=== PATIENT | female | born 1995 | race Caucasian/White ===

== ENCOUNTER 2017-05-25 14:07 | Emergency (ER) | payer SELFPAY ==
[2017-05-25 14:12] VITALS: BP 101/64; PULSE 70; TEMP 97.9; BMI 25.1
[2017-05-25 15:03] LABS: BASOPHIL 0.4 % (0-2.0); EOSINOPHIL 0.9 % (0-4.5); MCH 29.8 pg (25.7-33.7); MCHC 33.5 g/dl (32.0-36.0); MEAN CELL VOLUME 89.2 fl (80-96); MEAN PLT VOLUME 9.1 fl (7.5-11.1); NEUTROPHILS 63.5 % (42.8-82.8); PLATELET COUNT 256 K/MM3 (134-434)
[2017-05-25 15:04] LABS: URINE APPEARANCE SLCLOUDY; URINE BILIRUBIN NEGATIVE (NEGATIVE); URINE BLOOD NEGATIVE (NEGATIVE); URINE COLOR YELLOW; URINE GLUCOSE (UA) NEGATIVE (NEGATIVE); URINE KETONE NEGATIVE (NEGATIVE); URINE LEUK ESTERASE NEGATIVE (NEGATIVE); URINE NITRITE NEGATIVE (NEGATIVE); URINE PROTEIN NEGATIVE (NEGATIVE); URINE UROBILINOGEN NEGATIVE mg/dL (0.2-1.0)
--- NOTE | 2017-05-25 15:13 | PDOC ---
History of Present Illness - General Chief Complaint: Vaginal Bleeding Stated Complaint: 8 WEEK PREG, VAG. BLEEDING,PAIN Time Seen by Provider: 05/25/17 14:33 History Source: Patient, Friend (Was translating) Exam Limitations: Language Barrier - History of Present Illness Initial Comments: 05/25/17 15:11 The patient is a 21F 8 weeks by LMP who presents to the ED with vaginal bleeding and abdominal pain. 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 Today, the pain worsened and is accompanied by vaginal bleeding. There has been no discharge. This is the patient's 3rd , she has had 1 miscarriage. Past History - Past Medical History Allergies/Adverse Reactions: Allergies Allergy/AdvReac Type Severity Reaction Status Date / Time No Known Allergies Allergy Verified 05/25/17 14:12 Home Medications: Ambulatory Orders Amoxicillin/Potassium Clav [Augmentin 875-125 Tablet] 1 each PO BID 05/25/17 Other medical history: denies - Reproductive History Is Patient Now?: Yes (#): 3 Para: 1 Cervical CA: No Dysfunctional Uterine Bleeding: No Ectopic : No Endometrial CA: No Polycystic Ovaries: No Therapeutic (s) & number: Yes Tubal Ligation: No - Psycho/Social/Smoking Cessation Hx Suicidal Ideation: No Smoking History: Former smoker Have you smoked in the past 12 months: No If you are a former smoker, when did you quit?: 2017 Information on smoking cessation initiated: No 'Breaking Loose' booklet given: 05/25/17 Hx Alcohol Use: No Drug/Substance Use Hx: No Substance Use Type: None Review of Systems - Review of Systems Able to Perform ROS?: Yes (Limited) Is the patient limited Anguillan proficient: Yes Constitutional: Yes: Chills. No: Fever ABD/GI: Yes: Other (Abd pain). No: Nausea, Vomiting : No: Dysuria, Discharge *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 - Vital Signs Last Vital Signs Temp Pulse Resp BP Pulse Ox 97.9 F 70 18 101/64 100 05/25/17 14:10 05/25/17 14:10 05/25/17 14:10 05/25/17 14:10 05/25/17 14:10 - 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 General Appearance: Yes: Nourished, Appropriately Dressed. No: Apparent Distress HEENT: positive: Normal Voice, Hearing Grossly Normal Respiratory/Chest: positive: Lungs Clear, Normal Breath Sounds. negative: Chest Tender, Respiratory Distress Cardiovascular: positive: Regular Rhythm, Regular Rate, S1, S2 Female Pelvic Exam: positive: normal external exam, cervical os closed, other ( Mucous discharge in vaginal canal) Gastrointestinal/Abdominal: positive: Flat, Soft. negative: Tender, Distended, Guarding, Rebound Extremity: negative: Coldness, Cyanosis, Swelling Integumentary: positive: Dry, Warm. negative: Cold, Clammy Neurologic: positive: Fully Oriented, Alert, Normal Mood/Affect, Motor Strength 02/24 ED Treatment Course - LABORATORY CBC & Chemistry Diagram: 05/25/17 14:45 05/25/17 14:45 - ADDITIONAL ORDERS Additional order review: Laboratory Results 05/25/17 14:45 Urine Color Yellow Urine Appearance Slcloudy Urine pH 5.0 Urine Protein Negative Urine Glucose (UA) Negative Urine Ketones Negative Urine Blood Negative Urine Nitrite Negative Urine Bilirubin Negative Urine Urobilinogen Negative Ur Leukocyte Esterase Negative 05/25/17 14:45 RBC 4.19 MCV 89.2 MCHC 33.5 RDW 13.0 MPV 9.1 Neutrophils % 63.5 Lymphocytes % 26.6 Monocytes % 8.6 Eosinophils % 0.9 Basophils % 0.4 Medical Decision Making - Medical Decision Making 05/25/17 15:27 The patient is a 21F 8 weeks by LMP who presents with vaginal bleeding and abdominal pain. Beside US by Dr. Chacon and I, with Dr. López's supervision, visualized an IUP with a HR of 138. I have ordered basic labs and UA as she was recently diagnosed with UTI. 05/25/17 15:45 I have reassured the patient and instructed her to follow up with an OB within one week. Patient agrees and is ready for discharge. 05/25/17 16:56 Patient left without signing papers. I called the patient and used the chronic specialist phone ([phone]) to communicate the discharge instructions. I informed her to return if the abdominal pain worsened or if the bleeding continued/worsened. I also informed her to follow up with her OB and she agreed over the phone. *DC/Admit/Observation/Transfer Diagnosis at time of Disposition: Abdominal pain affecting - Discharge Dispostion Disposition: HOME Condition at time of disposition: Improved Admit: No - Patient Instructions Printed Discharge Instructions: Vaginal Bleeding During Additional Instructions: Please return to the ER if symptoms persist, worsen, or if new symptoms arise. Please call your OB and make an appointment within 1 week for follow up. Por favor regrese a la robina de emergencias si los sntomas persisten, empeoran o si surgen nuevos sntomas. Por favor llame a shafer obstetra y nereida bridgett arnoldo dentro de bridgett semana para el seguimiento. Print Language: CROATIAN - Attestations Physician Attestion: 05/25/17 15:49 I, Dr. Anuj Newton, attest that this document has been prepared under my direction and personally reviewed by me in its entirety. I further attest, that it accurately reflects all work, treatment, procedures and medical decision -making performed by me.
[2017-05-25 15:29] LABS: ALBUMIN 3.8 g/dl (3.4-5.0); ANION GAP 8 (8-16); BILIRUBIN,TOTAL 0.5 mg/dL (0.2-1.0); CALCIUM 9.1 mg/dL (8.5-10.1); CO2 27 mmol/L (21-32); CREATININE 0.5 mg/dL (0.55-1.02); GLUCOSE,RANDOM 71 mg/dL (74-106); SGOT/AST 13 U/L (15-37); SGPT/ALT 21 U/L (12-78); TOT PROT 7.1 g/dl (6.4-8.2)
--- NOTE | 2017-05-25 15:40 | PDOC ---
Attending Attestation - Resident Resident Name: Anuj Newton - ED Attending Attestation I have performed the following: I have examined & evaluated the patient, The case was reviewed & discussed with the resident, I agree w/resident's findings & plan, Exceptions are as noted - HPI HPI: 05/25/17 16:11 21 F @ 8 weeks gestation presenting with 1 episode of blood streaked urine. No abdominal pain, no dysuria. No F/C. No other vaginal discharge. - Physicial Exam PE: 05/25/17 16:13 GENERAL: Awake, alert, and fully oriented, in no acute distress HEAD: No signs of trauma EYES: PERRLA, EOMI, sclera anicteric, conjunctiva clear ENT: Auricles normal inspection, hearing grossly normal, nares patent, oropharynx clear without exudates. Moist mucosa NECK: Normal ROM, supple, no lymphadenopathy, JVD, or masses LUNGS: Breath sounds equal, clear to auscultation bilaterally. No wheezes, and no crackles HEART: Regular rate and rhythm, normal S1 and S2, no murmurs, rubs or gallops ABDOMEN: Soft, nontender, normoactive bowel sounds. No guarding, no rebound. Gravid uterus. EXTREMITIES: Normal range of motion, no edema. No clubbing or cyanosis. No cords, erythema, or tenderness NEUROLOGICAL: Cranial nerves II through XII grossly intact. Normal speech, normal gait : closed os with physiologic discharge, no blood, no CMT SKIN: Warm, Dry, normal turgor, no rashes or lesions noted. - Medical Decision Making 05/25/17 16:13 21 F @ 8 weeks gestation presenting with 1 episode of blood streaked urine. IUP confirmed on bedside US with normal FHR. Pelvic exam reveals closed cervical os with no blood in vault. Unlikely to be spontaneous , though still a possibility. UA clean. - reassurance - f/u OB within 1 week
[2017-05-25 15:47] LABS: ALK PHOS 51 U/L (45-117)
== END 2017-05-25 16:29 | disposition home or self-care (01) ==
LOC: JER 14:07
DX: O26.91 Pregnancy related conditions, unspecified, first trimester (principal); Z3A.08 8 weeks gestation of pregnancy; R10.9 Unspecified abdominal pain; F17.211 Nicotine dependence, cigarettes, in remission
CPT/HCPCS: 36415; 80053; 81003; 84702; 85025; 86850; 86900; 86901; 87086; 99282-25

== ENCOUNTER 2018-01-01 02:50 | Inpatient (IN) | payer OTHER ==
[2018-01-01] MEDS ORDERED: ELECTROLYTE-148 SOLN 500 ML IV ONE (03:00)
[2018-01-01] MEDS ORDERED: CITRIC ACID/SODIUM CITRATE 30 ML UNIT-DOSE CUP PO ONE (03:00)
[2018-01-01] MEDS: ELECTROLYTE-148 SOLN 1,000 ML IV SCH ×2 (03:30→15:28)
[2018-01-01 03:45] VITALS: BMI 31.2
[2018-01-01] MEDS ORDERED: OXYTOCIN 20 UNITS in 0.9% NS 20 UNIT/1,000 ML INFUS.BAG IV ONE ×2 (04:10→06:36)
[2018-01-01] MEDS ORDERED: ceFAZolin SODIUM 1 GM VIAL ONE (04:12)
[2018-01-01] MEDS ORDERED: morphine SULFATE/Preservative Free 0.5 MG/ML (1cc Syringe) ONE (04:13)
--- NOTE | 2018-01-01 04:39 | HP ---
Past Medical History - Primary Care Physician PCP:: Kirk Taylor - Admission Chief Complaint: 39 weeks, previous c/s , GDM. labor History of Present Illness: 22 yo f , edc by sono 01/08/18. in labor , cx 3 cm 80 vx -3 mi, fhr cat 1 , contraction q 1 min., rba discussed ,, care at [facility] , hx of GDM, on Glyburide 2.5 mg daily History Source: Patient Limitations to Obtaining History: Language Barrier - Past Medical History ...: 3 ...Para: 1 ...Term: 1 ...Spon : 1 ...LMP: 04/03/17 ... Weeks Gestation by Dates: 39.1 ...EDC by Dates: 01/08/18 ...EDC by Sono: 01/08/18 - Past Surgical History Past Surgical History: Yes: Hx Myomectomy: No Hx Transabdominal Cerclage: No - Smoking History Smoking history: Never smoked Have you smoked in the past 12 months: No If you are a former smoker, when did you quit?: 2017 - Alcohol/Substance Use Hx Alcohol Use: No - Social History History of Recent Travel: No Home Medications - Allergies Allergies/Adverse Reactions: Allergies Allergy/AdvReac Type Severity Reaction Status Date / Time No Known Allergies Allergy Verified 12/30/17 13:14 - Home Medications Home Medications: Ambulatory Orders Ferrous Sulfate [Feosol] 325 mg PO DAILY 12/20/17 Glyburide/Metformin HCl [Glyburide-Metformin 2.5-500 mg] 2.5 mg PO BID 12/20/17 Vit/Iron Fum/Folic AC [ Tablet] 1 each PO DAILY 12/20/17 Review of Systems - Review of Systems Constitutional: reports: No Symptoms Eyes: reports: No Symptoms HENT: reports: No Symptoms Neck: reports: No Symptoms Cardiovascular: reports: No Symptoms Respiratory: reports: No Symptoms Gastrointestinal: reports: No Symptoms Genitourinary: reports: No Symptoms Breasts: reports: No Symptoms Reported Musculoskeletal: reports: No Symptoms Integumentary: reports: No Symptoms Neurological: reports: No Symptoms Endocrine: reports: No Symptoms Hematology/Lymphatic: reports: No Symptoms Psychiatric: reports: No Symptoms 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 - Maternity Vital Signs: Vital Signs Temperature 97.9 F 01/01/18 03:46 Pulse Rate 59 L 01/01/18 03:46 Respiratory Rate 19 01/01/18 03:46 Blood Pressure 114/85 01/01/18 03:46 O2 Sat by Pulse Oximetry (%) Constitutional: Yes: Well Nourished, No Distress, Calm Eyes: Yes: WNL, Conjunctiva Clear, EOM Intact HENT: Yes: WNL, Atraumatic, Normocephalic Neck: Yes: WNL, Supple, Trachea Midline Cardiovascular: Yes: WNL, Regular Rate and Rhythm Breast(s): Yes: WNL - Abdominal Exam/OB Fundal Height: 40 Number of Fetuses: Single Presentation: Vertex Regularity: Regular Intensity: Strong Monitor Mode: External Heart Rate Location: [facility] Category: I Accelerations: Uniform Decelerations: None - Vaginal Exam/OB Vaginal Bleediing: Bloody Show Amniotic Membrane Status: Intact Presentation: Vertex/Position Station: -3 - 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 Musculoskeletal: Yes: WNL Edema: Yes Edema: LLE: Trace, RLE: Trace Deep Tendon Reflex Grade: Normal +2 Hemorrhage Risk Assessment - Risk Factors Medium Risk Factors: Yes: Prior , uterine surgery,or multiple laparotomies Risk Score: 1 Risk Level: Medium Risk Problem List - Problems (1) with 39 completed weeks gestation Code(s): Z3A.39 - 39 WEEKS GESTATION OF (2) Labor established Code(s): EMB4975 - (3) Gestational diabetes Code(s): O24.419 - GESTATIONAL DIABETES MELLITUS IN , UNSP CONTROL Qualifiers: Gestational diabetes mellitus control: oral hypoglycemic-controlled (4) Obesity Code(s): E66.9 - OBESITY, UNSPECIFIED Qualifiers: Obesity type: due to excess calories (5) Previous section complicating Code(s): O34.219 - MATERNAL CARE FOR UNSP TYPE SCAR FROM PREVIOUS DEL Assessment/Plan plan requesting repeat c/s, rba discussed
[2018-01-01] MEDS ORDERED: ePHEDrine SULFATE 50 MG/1 ML AMPULE ONE (04:53)
[2018-01-01] MEDS ORDERED: WITCH HAZEL 50% (TUCKS) 40 PAD/JAR PAD TP PRN (05:28)
[2018-01-01] MEDS ORDERED: METHYLERGONOVINE MALEATE 0.2 MG/1 ML AMP IM PRN (05:28)
[2018-01-01] MEDS ORDERED: BENZOCAINE 28 GM HEMORRHOIDAL OINTMENT PR PRN (05:28)
[2018-01-01] MEDS ORDERED: BENZOCAINE 20% 57 GM BOTTLE TP PRN (05:28)
[2018-01-01] MEDS ORDERED: oxyCODONE HCL 5 MG TABLET PO PRN ×2 (05:28)
[2018-01-01] MEDS ORDERED: diphenhydrAMINE HCL 25 MG CAPSULE (FP) PO PRN (05:28)
[2018-01-01] MEDS ORDERED: OXYTOCIN 20 UNITS in 0.9% NS 20 UNIT/1,000 ML INFUS.BAG IV SCH (05:30)
[2018-01-01] MEDS ORDERED: DEXTROSE 5%-LACTATED RINGERS 1,000 ML IV SCH (05:30)
[2018-01-01] MEDS ORDERED: morphine SULFATE/Preservative Free 0.5 MG/ML (1cc Syringe) IT ONE (05:41)
[2018-01-01] MEDS ORDERED: ONDANSETRON 4 MG/2 ML VIAL IVPUSH PRN (05:41)
[2018-01-01] MEDS: IBUPROFEN 800 MG/8 ML IJ IVPB PRN ×2 (08:14→20:16)
--- NOTE | 2018-01-01 09:03 | PN ---
Progress Note (short form) - Note Progress Note: Anesthesia POD#1 S/P under spinal and Duramorph VSS,no N/V,mod itch,mod pain,can move lower extremities. A/P No complications to anesthesia seen. Taylor Buenrostro MD.
[2018-01-01] MEDS: CEFAZOLIN 1 GM/D5W 1 GM/50 ML BAG IVPB SCH ×2 (09:58→17:36)
[2018-01-02] MEDS ORDERED: BISACODYL 10 MG SUPP.RECT PR PRN (05:28)
[2018-01-02] MEDS: IBUPROFEN 800 MG/8 ML IJ IVPB PRN (06:28)
--- NOTE | 2018-01-02 07:42 | PN ---
Post Progress Note Post Day: 1 Type of Delivery: Repeat C/S Vital Signs: Vital Signs Temperature 98.2 F 01/02/18 06:00 Pulse Rate 82 01/02/18 06:00 Respiratory Rate 20 01/02/18 06:00 Blood Pressure 121/78 01/02/18 06:00 O2 Sat by Pulse Oximetry (%) 99 01/01/18 06:43 Breast Exam: Yes: Soft Uterus: Yes: Fundus Firm Incision: Yes: Dressing dry and intact Abdomen/GI: Yes: Abdomen soft Lochia: Yes: Rubra Lochia, amount: Small Extremities: Yes: Calves non-tender Perineum: Yes: Intact Activity: Ambulating Assessment/Plan as above oob cbc today oob pain control
[2018-01-02 08:34] LABS: BASO % 0.4 % (0-2.0); EOS % 0.7 % (0-4.5); HEMATOCRIT 32.3 % (32.4-45.2); LYMPH % 13.4 % (8-40); MCH 29.6 pg (25.7-33.7); MEAN CELL VOLUME 87.2 fl (80-96); MEAN PLT VOLUME 9.4 fl (7.5-11.1); NEUT % 78.5 % (42.8-82.8); PLATELET COUNT 219 K/MM3 (134-434); RDW 15.7 % (11.6-15.6); WHITE BLOOD COUNT 11.5 K/mm3 (4.0-10.0)
[2018-01-02] MEDS: ENOXAPARIN NA (PORCINE) 40 MG/0.4 ML DISP.SYRIN SQ SCH (09:37)
[2018-01-02] MEDS: ACETAMINOPHEN 325 MG TABLET (FP) PO PRN ×2 (13:47→22:54)
[2018-01-02] MEDS: IBUPROFEN 600 MG TABLET (FP) PO PRN ×2 (13:48→22:55)
--- NOTE | 2018-01-02 15:21 | OP ---
DATE OF OPERATION: 01/01/2018 PREOPERATIVE DIAGNOSES: , 39 weeks; previous section; gestational diabetes; labor; request of repeat section. POSTOPERATIVE DIAGNOSES: , 39 weeks; previous section; gestational diabetes; labor; request of repeat section. PROCEDURE: Repeat low-segment transverse section. SURGEON: Kirk Taylor MD FORENSIC MANAGER: ANNETTE Austin ANESTHESIA: Spinal. ANESTHESIOLOGIST: Dr. Villagomez ESTIMATED BLOOD LOSS: 500 mL DESCRIPTION OF OPERATION: Patient was taken to the operating room. Under adequate spinal anesthesia, abdomen and perineum were prepped and draped. Pfannenstiel abdominal skin incision was made over the previous incision. Abdominal wall was cut layer by layer until peritoneum was exposed and incised. Upon entering the abdominal cavity, lower uterine segment was identified and uterovesical fold of peritoneum established. Bladder was pushed down. Then, with the lower blade of the Fitzhugh retractor in the pelvis, a low transverse uterine incision was made. Incision extended laterally with bandage scissors. Amniotic sac was entered, clear fluid. Head delivered. Nasopharynx was suctioned, and live baby was delivered without any difficulty. Placenta was delivered manually. Uterine cavity was cleaned of all remaining tissue. Uterine incision was closed in 2 layers, first layer with 0 Biosyn continuous suture, the second layer with 0 Biosyn imbricating the first layer. Bladder flap was closed with 0 Biosyn continuous suture. Both tubes and ovaries were checked and normal. No active bleeding was seen. All the lap pads, sponge, and instrument counts were correct. Then, peritoneum was closed with 0 Biosyn continuous suture. Muscles were brought together with interrupted suture of 0 Biosyn. Fascia was closed with 0 Biosyn continuous suture, subcutaneous fat with interrupted suture of 0 Biosyn, and the skin was closed with monty. Patient tolerated the procedure well, left the OR in good condition. Alexy [id number]
[2018-01-02] MEDS: SIMETHICONE 80 MG TAB.CHEW (FP) PO PRN (22:56)
[2018-01-03] MEDS: SIMETHICONE 80 MG TAB.CHEW (FP) PO PRN ×3 (06:34→20:26)
[2018-01-03] MEDS: ACETAMINOPHEN 325 MG TABLET (FP) PO PRN ×3 (06:34→20:26)
[2018-01-03] MEDS: IBUPROFEN 600 MG TABLET (FP) PO PRN ×3 (06:34→20:26)
[2018-01-03] MEDS: ENOXAPARIN NA (PORCINE) 40 MG/0.4 ML DISP.SYRIN SQ SCH (10:14)
--- NOTE | 2018-01-03 11:26 | PN ---
Post Progress Note - Subjective Subjective: c/o pain 6/10 at incision site Post Day: 2 Type of Delivery: Repeat C/S Vital Signs: Vital Signs Temperature 98.6 F 01/03/18 09:24 Pulse Rate 73 01/03/18 09:24 Respiratory Rate 20 01/03/18 09:24 Blood Pressure 120/82 01/03/18 09:24 O2 Sat by Pulse Oximetry (%) 99 01/01/18 06:43 Breast Exam: Yes: Soft. No: Engorged Uterus: Yes: Fundus Firm, Fundus below umbilicus, Non-tender Incision: Yes: Isaak intact. No: Redness, Oozing Abdomen/GI: Yes: Abdomen soft, Passing flatus (bm done ), Tolerating PO (diet ) . No: Abdominal Distention, Tender Lochia: Yes: Rubra Lochia, amount: Moderate Extremities: Yes: Calves non-tender Perineum: Yes: Intact Activity: Ambulating - Labs Labs: CBC WBC 11.5 K/mm3 (4.0-10.0) H D 01/02/18 08:00 RBC 3.70 M/mm3 (3.60-5.2) 01/02/18 08:00 Hgb 11.0 GM/dL (10.7-15.3) D 01/02/18 08:00 Hct 32.3 % (32.4-45.2) L 01/02/18 08:00 MCV 87.2 fl (80-96) 01/02/18 08:00 MCH 29.6 pg (25.7-33.7) 01/02/18 08:00 MCHC 34.0 g/dl (32.0-36.0) 01/02/18 08:00 RDW 15.7 % (11.6-15.6) H 01/02/18 08:00 Plt Count 219 K/MM3 (134-434) 01/02/18 08:00 MPV 9.4 fl (7.5-11.1) 01/02/18 08:00 Neutrophils % 78.5 % (42.8-82.8) D 01/02/18 08:00 Lymphocytes % 13.4 % (8-40) D 01/02/18 08:00 Monocytes % 7.0 % (3.8-10.2) 01/02/18 08:00 Eosinophils % 0.7 % (0-4.5) 01/02/18 08:00 Basophils % 0.4 % (0-2.0) 01/02/18 08:00 Assessment/Plan post op c/s day #[address] po care
--- NOTE | 2018-01-03 14:37 | PATH ---
Surgical Pathology Report Patient Name: JOSE LYNN Med. Rec. 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 Specimen(s) Received PLACENTA Clinical History , 39.1 weeks' gestation comments the section for breech presentation 2008 Final Diagnosis PLACENTA, SECTION: 631 g THIRD TRIMESTER PLACENTA WITH TRIVASCULAR UMBILICAL CORD AND UNREMARKABLE PLACENTAL MEMBRANES. Electronically Signed Erica Fair M.D. Gross Description The specimen is received fresh labeled placenta and is a 631 gram, 21.0 x 16.5 x 2.4 cm. placenta with attached membranes and umbilical cord. The attached membranes are singh, translucent with focal opacities and insert marginally. The umbilical cord measures 56 cm. in length and averages 1.2 cm. in diameter. The cord inserts centrally. No true knots or strictures are identified. Cut surface of the umbilical cord reveals 3 vessels. The surface is rodriguez-blue with minimal fibrin deposition and appropriate caliber vessels. The maternal surface is red-brown with focal defects. Sectioning reveals red-brown, spongy parenchyma. No lesions are identified. Data Developer sections are submitted in three cassettes as follows: 1- membrane rolls and umbilical cord; 2-3- full thickness sections of placenta. 01/02/2018 [facility]01/02/2018
[2018-01-03] MEDS ORDERED: SENNOSIDES/DOCUSATE COMBO (SENNA PLUS) TABLET (UD) PO PRN (22:00)
[2018-01-04] MEDS: ACETAMINOPHEN 325 MG TABLET (FP) PO PRN (06:33)
[2018-01-04] MEDS: SIMETHICONE 80 MG TAB.CHEW (FP) PO PRN (06:33)
[2018-01-04] MEDS: IBUPROFEN 600 MG TABLET (FP) PO PRN (06:33)
[2018-01-04 07:57] LABS: BASO % 0.4 % (0-2.0); EOS % 2.4 % (0-4.5); HEMATOCRIT 29.3 % (32.4-45.2); HEMOGLOBIN 9.9 GM/dL (10.7-15.3); MCH 29.9 pg (25.7-33.7); MCHC 33.8 g/dl (32.0-36.0); MEAN CELL VOLUME 88.4 fl (80-96); MEAN PLT VOLUME 9.4 fl (7.5-11.1); MONO % 6.8 % (3.8-10.2); NEUT % 71.4 % (42.8-82.8); PLATELET COUNT 233 K/MM3 (134-434); RBC 3.31 M/mm3 (3.60-5.2); RDW 16.4 % (11.6-15.6); WHITE BLOOD COUNT 10.3 K/mm3 (4.0-10.0)
[2018-01-04 08:43] VITALS: BP 97/68; PULSE 92; TEMP 98.4
[2018-01-04] MEDS: ENOXAPARIN NA (PORCINE) 40 MG/0.4 ML DISP.SYRIN SQ SCH (09:08)
--- NOTE | 2018-01-04 09:23 | DS ---
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-SHAPER MACHINE HAND Vital Signs: Vital Signs Temperature 98.4 F 01/04/18 08:41 Pulse Rate 92 H 01/04/18 08:41 Respiratory Rate 20 01/04/18 08:41 Blood Pressure 97/68 01/04/18 08:41 O2 Sat by Pulse Oximetry (%) 99 01/01/18 06:43 Constitutional: Yes: Well Nourished Eyes: Yes: Conjunctiva Clear HENT: Yes: Atraumatic Neck: Yes: Supple Cardiovascular: Yes: Regular Rate and Rhythm Respiratory: Yes: Regular Gastrointestinal: Yes: Normal Bowel Sounds Pelvis: Yes: WNL External Genitalia: Yes: Normal Vaginal Exam: Yes: Normal Cervix: Yes: Normal Uterus: Yes: Firm Wound/Incision: Yes: Well Approximated, [place] Intact Neurological: Yes: Alert, Oriented ...Motor Strength: WNL Psychiatric: Yes: Alert, Oriented Labs: CBC, BMP 01/04/18 07:40 Delivery - Delivery Type of Anesthesia: Spinal Episiotomy/Laceration: None EBL (cc): 300 Delivery, Single - Stages of Labor Date 1st Stage Initiatied: 01/01/18 Time 1st Stage Initiated: 02:00 Date of Delivery: 01/01/18 Time of Delivery: 05:02 Time Placenta Delivered: 05:03 - Condition of Infant Production Illustrator/Industrial Engineering Technologist Present: Yes Name: Agata Almeida Gender: Male Weight: 9 lb 3 oz Position: Left, OT Total Hours ROM (Hrs/Mins): 3mins. - 1 Minute Total Score: 9 5 Minutes Total Score: 9 - Feeding Plan Initial Plan: Elected not to breastfeed exclusively throughout hospitalization Discharge Summary Reason For Visit: REPEAT C SECTION. Current Active Problems Gestational diabetes (Acute) Labor established (Acute) Obesity (Acute) with 39 completed weeks gestation (Acute) Previous section complicating (Acute) Status post repeat low transverse section (Acute) Procedures: Principal: Repeat Low Transverse Hospital Course: Routine Post op care Condition: Good - Instructions Diet, Activity, Other Instructions: Regular diet No driving, no lifting x 4 weeks F/U in clinic in 1 week Disposition: HOME - Home Medications Comprehensive Discharge Medication List: Ambulatory Orders Ferrous Sulfate [Feosol] 325 mg PO DAILY 12/20/17 Glyburide/Metformin HCl [Glyburide-Metformin 2.5-500 mg] 2.5 mg PO BID 12/20/17 Vit/Iron Fum/Folic AC [ Tablet] 1 each PO DAILY 12/20/17
== END 2018-01-04 12:00 | disposition home or self-care (01) | DRG 540 ==
LOC: JLDR 02:50 → J3W 08:00
PROVIDERS: ADMIT Obstetrics & Gynecology; ATTEND Obstetrics & Gynecology
PROC: 10D00Z1 Extraction of Products of Conception, Low, Open Approach (ICD-10-PCS; principal; 2018-01-01)
DX: O34.211 Maternal care for low transverse scar from previous cesarean delivery (principal); O24.425 Gestational diabetes mellitus in childbirth, controlled by oral hypoglycemic drugs; O99.214 Obesity complicating childbirth; E66.9 Obesity, unspecified; Z68.31 Body mass index [BMI] 31.0-31.9, adult; Z3A.39 39 weeks gestation of pregnancy; Z37.0 Single live birth
CPT/HCPCS: 36415; 82962; 85025; 88307-TC

== ENCOUNTER 2021-11-19 11:32 | Emergency (ER) | payer OTHER ==
[2021-11-19 11:55] VITALS: BP 120/69; PULSE 61; TEMP 97.1; BMI 30.2
[2021-11-19 14:43] LABS: HCG,QUALITATIVE URINE Positive; PH,URINE 5.5 (5.0-8.0); URINE APPEARANCE CLEAR; URINE BILIRUBIN NEGATIVE (NEGATIVE); URINE COLOR YELLOW; URINE GLUCOSE (UA) NEGATIVE (NEGATIVE); URINE KETONE 1+ (NEGATIVE); URINE LEUK ESTERASE NEGATIVE (NEGATIVE); URINE NITRITE NEGATIVE (NEGATIVE); URINE PROTEIN NEGATIVE (NEGATIVE); URINE UROBILINOGEN 0.2 mg/dL (0.2-1.0)
[2021-11-19 15:10] LABS: BASO % 0.2 % (0-2.0); EOS % 0.7 % (0-4.5); HEMATOCRIT 40.3 % (32.4-45.2); HEMOGLOBIN 13.1 GM/dL (10.7-15.3); LYMPH % 25.4 % (8-40); MCH 28.8 pg (25.7-33.7); MCHC 32.6 g/dl (32.0-36.0); MEAN CELL VOLUME 88.5 fl (80-96); MEAN PLT VOLUME 9.1 fl (7.5-11.1); MONO % 5.1 % (3.8-10.2); NEUT % 68.6 % (42.8-82.8); PLATELET COUNT 328 10^3/uL (134-434); RBC 4.55 M/mm3 (3.60-5.2); RDW 13.9 % (11.6-15.6); WHITE BLOOD COUNT 9.2 K/mm3 (4.0-10.0)
[2021-11-19 15:30] LABS: ALBUMIN 4.1 g/dl (3.4-5.0)
[2021-11-19 15:33] LABS: CREATININE 0.6 mg/dL (0.55-1.3)
[2021-11-19 15:35] LABS: BILIRUBIN,TOTAL 0.4 mg/dL (0.2-1)
== END 2021-11-19 17:20 | disposition home or self-care (01) ==
LOC: JER 11:32
DX: O26.851 Spotting complicating pregnancy, first trimester (principal); Z3A.08 8 weeks gestation of pregnancy
CPT/HCPCS: 36415; 76817-TC; 80053; 81003; 84702; 84703; 85025; 86850; 86900; 86901; 87086; 87186; 99284-25

== ENCOUNTER 2021-12-23 11:19 | Emergency (ER) | payer OTHER ==
[2021-12-23 11:35] VITALS: BP 116/73; PULSE 89; TEMP 98.4; BMI 29.0
[2021-12-23] MEDS ORDERED: SODIUM CHLORIDE 0.9% 500 ML INFUS.BAG IV ONE (11:51)
[2021-12-23] MEDS ORDERED: ONDANSETRON 4 MG/2 ML VIAL IVPUSH ONE (11:51)
== END 2021-12-23 13:15 | disposition home or self-care (01) ==
LOC: JERFT 11:19
PROC: 3E033GC Introduction of Other Therapeutic Substance into Peripheral Vein, Percutaneous Approach (ICD-10-PCS; principal; 2021-12-23)
PROC: 3E033GC Introduction of Other Therapeutic Substance into Peripheral Vein, Percutaneous Approach (ICD-10-PCS; 2021-12-23)
DX: O26.891 Other specified pregnancy related conditions, first trimester (principal); R21 Rash and other nonspecific skin eruption; T78.40XA Allergy, unspecified, initial encounter; Z3A.13 13 weeks gestation of pregnancy
CPT/HCPCS: 99284-25

== ENCOUNTER 2022-06-15 04:20 | Inpatient (IN) | payer OTHER ==
[2022-06-15] MEDS ORDERED: ELECTROLYTE-148 SOLN 500 ML IV ONE (04:30)
[2022-06-15] MEDS ORDERED: CITRIC ACID/SODIUM CITRATE 30 ML UNIT-DOSE CUP PO ONE (04:45)
[2022-06-15 05:36] LABS: BASO % 0.4 % (0-2.0); EOS % 1.1 % (0-4.5); HEMOGLOBIN 12.3 GM/dL (10.7-15.3); LYMPH % 28.2 % (8-40); MCH 28.6 pg (25.7-33.7); MCHC 33.2 g/dl (32.0-36.0); MEAN PLT VOLUME 10.7 fl (7.5-11.1); MONO % 7.7 % (3.8-10.2); NEUT % 62.6 % (42.8-82.8); PLATELET COUNT 255 10^3/uL (134-434); RDW 16.1 % (11.6-15.6); WHITE BLOOD COUNT 9.8 K/mm3 (4.0-10.0)
[2022-06-15 05:42] VITALS: BMI 36.0
[2022-06-15 05:42] LABS: INR 0.9 (0.83-1.09); PROTHROMBIN TIME (PATIENT) 10.3 SEC (9.7-13.0)
[2022-06-15 05:44] LABS: ACTIVATED PTT 25.2 SECONDS (25.2-36.5)
[2022-06-15 05:49] LABS: CALCIUM 9.1 mg/dL (8.5-10.1)
[2022-06-15 05:50] LABS: BLOOD UREA NITROGEN 9.6 mg/dL (7-18)
[2022-06-15] MEDS ORDERED: morphine SULFATE/PF 1 MG/2 ML (2cc Syringe - QUVA) ONE (05:50)
[2022-06-15 05:53] LABS: CREATININE 0.7 mg/dL (0.55-1.3)
[2022-06-15] MEDS ORDERED: morphine SULFATE/PF 1 MG/2 ML (2cc Syringe - QUVA) IT ONE (06:39)
[2022-06-15] MEDS ORDERED: ACETAMINOPHEN 1000 MG/100 ML BAG IVPB ONE (06:45)
[2022-06-15 07:27] LABS: CORD pH 7.237 (7.14-7.44)
[2022-06-15 07:32] LABS: CORD HCO3 24.3 mmHg (20-29); CORD PCO2 63.5 mmHg (30-78)
[2022-06-15] MEDS ORDERED: MISOPROSTOL 200 MCG TABLET ONE (08:16)
[2022-06-15] MEDS ORDERED: OXYTOCIN 20 UNITS in 0.9% NS 20 UNIT/1,000 ML INFUS.BAG IV ONE (08:20)
[2022-06-15] MEDS ORDERED: ceFAZolin SODIUM 1 GM VIAL ONE (08:39)
[2022-06-15 08:43] LABS: BASO % 0.1 % (0-2.0); EOS % 0.1 % (0-4.5); HEMOGLOBIN 9.9 GM/dL (10.7-15.3); LYMPH % 10.6 % (8-40); MCH 28.5 pg (25.7-33.7); MEAN CELL VOLUME 86.2 fl (80-96); MEAN PLT VOLUME 10.3 fl (7.5-11.1); NEUT % 85.2 % (42.8-82.8); PLATELET COUNT 284 10^3/uL (134-434); RBC 3.48 M/mm3 (3.60-5.2); RDW 15.8 % (11.6-15.6); WHITE BLOOD COUNT 17.1 K/mm3 (4.0-10.0)
[2022-06-15] MEDS ORDERED: ONDANSETRON 4 MG/2 ML VIAL ONE (08:59)
[2022-06-15 09:00] LABS: INR 0.98 (0.83-1.09); PROTHROMBIN TIME (PATIENT) 11.3 SEC (9.7-13.0)
[2022-06-15 09:02] LABS: ACTIVATED PTT 22.7 SECONDS (25.2-36.5)
[2022-06-15 09:07] LABS: ALBUMIN 2.3 g/dl (3.4-5.0); BLOOD UREA NITROGEN 11.2 mg/dL (7-18); CALCIUM 7.8 mg/dL (8.5-10.1)
[2022-06-15 09:08] LABS: CREATININE 0.8 mg/dL (0.55-1.3)
[2022-06-15 09:10] LABS: BILIRUBIN,TOTAL 0.3 mg/dL (0.2-1); TOT PROT 5.2 g/dl (6.4-8.2)
[2022-06-15] MEDS ORDERED: DIPHENOXYLATE 2.5/ATROPINE.025 1 COMBO TABLET PO ONE (09:11)
[2022-06-15] MEDS ORDERED: ACETAMINOPHEN INJECTION 100 ML IVPB ONE (09:52)
[2022-06-15] MEDS ORDERED: ACETAMINOPHEN 1000 MG/100 ML BAG IVPB PRN (12:17)
[2022-06-15] MEDS ORDERED: SENNOSIDES/DOCUSATE COMBO (SENNA PLUS) TABLET (UD) PO PRN (12:17)
[2022-06-15] MEDS ORDERED: ONDANSETRON 4 MG/2 ML VIAL IVPB PRN (12:17)
[2022-06-15] MEDS ORDERED: ACETAMINOPHEN 325 MG TABLET (FP) PO PRN (12:17)
[2022-06-15] MEDS ORDERED: IBUPROFEN 800 MG/8 ML IJ IVPB PRN (12:17)
[2022-06-15] MEDS ORDERED: OXYTOCIN 20 UNITS in 0.9% NS 20 UNIT/1,000 ML INFUS.BAG IV SCH (12:30)
[2022-06-15] MEDS ORDERED: LACTATED RINGERS SOLUTION 1,000 ML/1,000 ML INFUS.BAG IV SCH (12:30)
[2022-06-15] MEDS: METHYLERGONOVINE MALEATE 0.2 MG TABLET (FP) PO PRN ×3 (13:05→20:53)
[2022-06-15 15:48] LABS: BASO % 0.2 % (0-2.0); EOS % 0.1 % (0-4.5); HEMATOCRIT 30.1 % (32.4-45.2); HEMOGLOBIN 10.3 GM/dL (10.7-15.3); LYMPH % 15.7 % (8-40); MCHC 34.2 g/dl (32.0-36.0); MEAN CELL VOLUME 87.6 fl (80-96); MONO % 7.3 % (3.8-10.2); NEUT % 76.7 % (42.8-82.8); PLATELET COUNT 188 10^3/uL (134-434); RBC 3.43 M/mm3 (3.60-5.2); RDW 15.1 % (11.6-15.6); WHITE BLOOD COUNT 13.6 K/mm3 (4.0-10.0)
[2022-06-15] MEDS: IBUPROFEN 600 MG TABLET (FP) PO PRN (20:53)
[2022-06-16] MEDS: SIMETHICONE 80 MG TAB.CHEW (FP) PO PRN ×4 (02:30→19:41)
[2022-06-16] MEDS: IBUPROFEN 600 MG TABLET (FP) PO PRN ×3 (08:10→19:41)
[2022-06-16 09:51] LABS: BASO % 0.2 % (0-2.0); EOS % 0.9 % (0-4.5); HEMATOCRIT 28.2 % (32.4-45.2); HEMOGLOBIN 9.8 GM/dL (10.7-15.3); LYMPH % 19.1 % (8-40); MCH 30.4 pg (25.7-33.7); MCHC 34.8 g/dl (32.0-36.0); MEAN CELL VOLUME 87.5 fl (80-96); MEAN PLT VOLUME 9.9 fl (7.5-11.1); MONO % 7.7 % (3.8-10.2); NEUT % 72.1 % (42.8-82.8); PLATELET COUNT 209 10^3/uL (134-434); RBC 3.22 M/mm3 (3.60-5.2); RDW 15.3 % (11.6-15.6)
[2022-06-16] MEDS ORDERED: BISACODYL 10 MG SUPP.RECT RC PRN (12:17)
[2022-06-16] MEDS: oxyCODONE HCL 5 MG TABLET PO PRN (12:51)
[2022-06-17] MEDS: oxyCODONE HCL 5 MG TABLET PO PRN ×2 (03:10→19:30)
[2022-06-17] MEDS: SIMETHICONE 80 MG TAB.CHEW (FP) PO PRN ×2 (03:10→19:31)
[2022-06-17] MEDS: IBUPROFEN 600 MG TABLET (FP) PO PRN (07:09)
[2022-06-17] MEDS: ACETAMINOPHEN 500 MG TABLET (FP) PO SCH ×3 (14:06→23:00)
[2022-06-17] MEDS: POLYETHYLENE GLYCOL (HEALTHYLAX) 3350 17 GM PACKET PO SCH (14:07)
[2022-06-18] MEDS: ACETAMINOPHEN 500 MG TABLET (FP) PO SCH (04:53)
[2022-06-18] MEDS: POLYETHYLENE GLYCOL (HEALTHYLAX) 3350 17 GM PACKET PO SCH (09:08)
[2022-06-18 10:32] VITALS: BP 114/79; PULSE 101; RESP 16; TEMP 99.2
== END 2022-06-18 11:20 | disposition home or self-care (01) | DRG 540 ==
LOC: JLDR 04:20 → J3W 15:19
PROVIDERS: ADMIT Obstetrics & Gynecology; ATTEND Obstetrics & Gynecology
PROC: 10D00Z1 Extraction of Products of Conception, Low, Open Approach (ICD-10-PCS; principal; 2022-06-15)
DX: O42.02 Full-term premature rupture of membranes, onset of labor within 24 hours of rupture (principal); O24.425 Gestational diabetes mellitus in childbirth, controlled by oral hypoglycemic drugs; O72.1 Other immediate postpartum hemorrhage; Z3A.39 39 weeks gestation of pregnancy; Z37.0 Single live birth; O34.219 Maternal care for unspecified type scar from previous cesarean delivery
CPT/HCPCS: 36415; 36430; 36600; 80048; 80053; 82803; 85025; 85384; 85610; 85730; 86780; 86850; 86900; 86901; 86922; 88307-TC; C9803-CS; P9058; U0003; U0005